=== PATIENT | male | born 1970 | race Two or more races ===

== ENCOUNTER 2016-08-09 20:10 | Emergency (ER) | payer MEDICAID, MEDICARE ==
[~2016-08-09] VITALS: Ht 177.8 cm; Wt 136.1 kg
[2016-08-09] MEDS ORDERED: DEXTROSE 50%-WATER 50 ML DISP.SYRIN ONE (20:26)
[2016-08-09] MEDS ORDERED: DEXTROSE 50%-WATER 50 ML DISP.SYRIN IVP ONE ×2 (20:30)
[2016-08-09 20:43] LABS: CALCIUM, SERUM 7.9 mg/dL (8.5-10.1); POTASSIUM 3.9 mmol/L (3.5-5.1)
[2016-08-09 20:48] LABS: ALBUMIN 3.9 g/dL (3.4-5.0); BILIRUBIN,DIRECT 0.3 mg/dL (0.0-0.2); BILIRUBIN,TOTAL 0.8 mg/dL (0.2-1.0); INDIRECT BILIRUBIN 0.5 mg/dL (0.0-1.1); TOTAL PROTEIN, SERUM 7.8 g/dL (6.4-8.2)
[2016-08-09 20:50] LABS: TROPONIN I 0.122 ng/mL (0.00-0.056)
[2016-08-09 20:53] LABS: CREATININE 9.3 mg/dL (0.6-1.3)
[2016-08-09 20:58] LABS: INR 1.13 (0.87-1.13); PROTHROMBIN TIME 12.2 SECS (9.5-12.7)
[2016-08-09 21:14] LABS: BASOPHILS % (AUTO) 0.6 % (0.0-2.0); DIFF TOTAL % 100 %; EOSINOPHILS # (AUTO) 0.2 /CMM (0.0-0.7); EOSINOPHILS % (AUTO) 3.3 % (0.0-6.0); HEMATOCRIT 25 % (39-51); HEMOGLOBIN 8.4 g/dL (13.5-17.5); LYMPHOCYTES # (AUTO) 0.7 /CMM (0.8-4.8); LYMPHOCYTES % (AUTO) 13.8 % (20.0-44.0); MEAN CORPUSCULAR HEMOGLOBIN 29 PG (26.0-33.0); MEAN CORPUSCULAR HGB CONC 33 g/dl (31.0-36.0); MEAN CORPUSCULAR VOLUME 87 fL (80-96); MONOCYTES # (AUTO) 0.6 /CMM (0.1-1.30); MONOCYTES % (AUTO) 11.5 % (2.0-12.0); NEUTROPHILS # (AUTO) 3.7 /CMM (1.8-8.9); NEUTROPHILS % (AUTO) 70.8 % (43.0-81.0); PLATELET COUNT (AUTO) 201 /CMM (150-450); RED BLOOD CELL COUNT(AUTO) 2.94 MIL/uL (4.5-6.0); WHITE BLOOD COUNT (AUTO) 5.2 K/uL (4.3-11.0)
[2016-08-09 21:54] VITALS: BP 152/86
== END 2016-08-09 21:55 | disposition home or self-care (01) ==
LOC: ER 20:16
DX: I12.0 Hypertensive chronic kidney disease with stage 5 chronic kidney disease or end stage renal disease (principal); N18.6 End stage renal disease; Z99.2 Dependence on renal dialysis
CPT/HCPCS: 36415; 71010-TC; 80048-TC; 80076-TC; 82962-TC; 84484-TC; 85025-TC; 85730-TC; A4606; Z7610

== ENCOUNTER 2021-01-26 09:48 | Outpatient (CLI) | payer MEDICARE, OTHER | END 2021-01-26 23:59 | disposition home or self-care (01) | LOC: US 09:48 | PROVIDERS: ATTEND Internal Medicine Nephrology | DX: R18.8 Other ascites (principal) | CPT/HCPCS: 76942-TC ==

== ENCOUNTER 2021-02-08 11:39 | Outpatient (CLI) | payer MEDICARE, OTHER | END 2021-02-08 23:59 | disposition home or self-care (01) | LOC: US 11:39 | DX: R18.8 Other ascites (principal) | CPT/HCPCS: 76942-TC ==

== ENCOUNTER 2021-02-15 09:16 | Outpatient (CLI) | payer MEDICARE, OTHER | END 2021-02-15 23:59 | disposition home or self-care (01) | LOC: US 09:16 | PROVIDERS: ATTEND Family Medicine | DX: K74.60 Unspecified cirrhosis of liver (principal); R18.8 Other ascites | CPT/HCPCS: 76942-TC ==

== ENCOUNTER 2021-02-19 08:25 | Emergency (ER) | payer MEDICARE, OTHER ==
[~2021-02-19] VITALS: Ht 177.8 cm; Wt 121.6 kg
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
--- NOTE | 2021-02-19 08:35 | NUR ---
AT BEDSIDE FOR EVAL.
--- NOTE | 2021-02-19 08:45 | NUR ---
IV LINE ESTABLISHED BLOOD DRAWN AND SENT TO LAB.
[2021-02-19] MEDS ORDERED: CARV25TA2 PO (08:48)
[2021-02-19] MEDS ORDERED: LOSA50TA39 PO (08:48)
[2021-02-19] MEDS ORDERED: MINO10TA PO (08:48)
[2021-02-19] MEDS ORDERED: ERGO500093 PO (08:56)
[2021-02-19 08:57] LABS: BASOPHILS # (AUTO) 0.1 K/uL (0.0-0.2); BASOPHILS % (AUTO) 1.5 % (0.0-2.0); EOSINOPHILS % (AUTO) 4.9 % (0.0-6.0); HEMATOCRIT 35 % (39-51); HEMOGLOBIN 11.1 g/dL (13.5-17.5); LYMPHOCYTES # (AUTO) 0.7 K/uL (0.8-4.8); LYMPHOCYTES % (AUTO) 10.9 % (20.0-44.0); MEAN CORPUSCULAR HGB CONC 32 g/dl (31.0-36.0); MEAN CORPUSCULAR VOLUME 85 fL (80-96); MONOCYTES # (AUTO) 0.6 K/uL (0.1-1.30); MONOCYTES % (AUTO) 9.2 % (2.0-12.0); NEUTROPHILS # (AUTO) 4.9 K/uL (1.8-8.9); NEUTROPHILS % (AUTO) 73.5 % (43.0-81.0); PLATELET COUNT (AUTO) 242 K/uL (150-450); RED BLOOD CELL COUNT(AUTO) 4.13 MIL/uL (4.5-6.0); WHITE BLOOD COUNT (AUTO) 6.6 K/uL (4.3-11.0)
--- NOTE | 2021-02-19 09:18 | NUR ---
BRAND STRATEGIST AT BEDSIDE FOR XRAY.
[2021-02-19 09:30] LABS: ALBUMIN 2.5 g/dL (3.4-5.0); BILIRUBIN,DIRECT 0.2 mg/dL (0.0-0.2); BILIRUBIN,TOTAL 0.5 mg/dL (0.2-1.0); CALCIUM, SERUM 7.3 mg/dL (8.5-10.1); POTASSIUM 5.9 mmol/L (3.5-5.1); TOTAL PROTEIN, SERUM 6.7 g/dL (6.4-8.2)
[2021-02-19 09:49] LABS: CREATININE 15.2 mg/dL (0.6-1.3)
[2021-02-19] MEDS ORDERED: IOHEXOL-300 100 ML VIAL IV ONE (09:59)
[2021-02-19] MEDS ORDERED: IV NS 0.9% 250 ML IV ONE (09:59)
[2021-02-19] MEDS ORDERED: CT SWABBABLE VALVE TRANS SET 1 EA INFUS.SET MC ONE (09:59)
--- NOTE | 2021-02-19 10:03 | NUR ---
PT IS WHEELED TO CT SCAN VIA WHEELCHAIR.
--- NOTE | 2021-02-19 10:51 | NUR ---
IV removed. Catheter intact and site benign. Pressure and 4x4 applied to site. No bleeding noted. Patient discharged to home in stable condition. Written and verbal after care instructions given. Patient verbalizes understanding of instruction.
[2021-02-19 10:52] VITALS: BP 125/71
== END 2021-02-19 10:52 | disposition home or self-care (01) ==
LOC: ER 08:28
DX: I12.0 Hypertensive chronic kidney disease with stage 5 chronic kidney disease or end stage renal disease (principal); N18.6 End stage renal disease; R18.8 Other ascites; Z79.899 Other long term (current) drug therapy
CPT/HCPCS: 36415; 71045; 74177; 80048; 80076; 82140; 83690; 85025; 85730; 99285; J7050; Q9967

== ENCOUNTER 2021-02-22 10:09 | Outpatient (CLI) | payer MEDICARE, OTHER ==
[~2021-02-22 10:09] MED LIST: CARV25TA2 PO; ERGO500093 PO; LOSA50TA39 PO; MINO10TA PO
== END 2021-02-22 23:59 | disposition home or self-care (01) ==
LOC: US 10:09
PROVIDERS: ATTEND Family Medicine
DX: K74.60 Unspecified cirrhosis of liver (principal); R18.8 Other ascites
CPT/HCPCS: 76942-TC

== ENCOUNTER → 2021-03-01 | Outpatient (CLI) | payer MEDICARE, OTHER | END | disposition home or self-care (01) | LOC: US 10:04 | DX: R18.8 Other ascites (principal); K74.60 Unspecified cirrhosis of liver | CPT/HCPCS: 76942-TC ==

== ENCOUNTER 2021-03-09 09:16 | Outpatient (CLI) | payer MEDICARE, OTHER | END 2021-03-09 23:59 | disposition home or self-care (01) | LOC: US 09:16 | PROVIDERS: ATTEND Family Medicine | DX: R18.8 Other ascites (principal); K74.60 Unspecified cirrhosis of liver | CPT/HCPCS: 76942-TC ==

== ENCOUNTER 2021-03-15 08:49 | Outpatient (CLI) | payer MEDICARE, OTHER | END 2021-03-15 23:59 | disposition home or self-care (01) | LOC: US 08:49 | DX: R18.8 Other ascites (principal); K74.60 Unspecified cirrhosis of liver | CPT/HCPCS: 76942-TC ==

== ENCOUNTER 2021-03-23 09:39 | Outpatient (CLI) | payer MEDICARE, OTHER | END 2021-03-23 23:59 | disposition home or self-care (01) | LOC: US 09:39 | PROVIDERS: ATTEND Family Medicine | DX: R18.8 Other ascites (principal); K74.60 Unspecified cirrhosis of liver | CPT/HCPCS: 76942-TC ==

== ENCOUNTER 2021-03-29 10:16 | Outpatient (CLI) | payer MEDICARE, OTHER | END 2021-03-29 23:59 | disposition home or self-care (01) | LOC: US 10:16 | PROVIDERS: ATTEND Family Medicine | DX: R18.8 Other ascites (principal); K74.60 Unspecified cirrhosis of liver | CPT/HCPCS: 76942-TC ==

== ENCOUNTER 2021-04-05 09:08 | Outpatient (CLI) | payer MEDICARE, OTHER | END 2021-04-05 23:59 | disposition home or self-care (01) | LOC: US 09:08 | PROVIDERS: ATTEND Family Medicine | DX: R18.8 Other ascites (principal); K74.60 Unspecified cirrhosis of liver | CPT/HCPCS: 76942-TC ==

== ENCOUNTER 2021-04-13 10:08 | Outpatient (CLI) | payer MEDICARE, OTHER | END 2021-04-13 23:59 | disposition home or self-care (01) | LOC: US 10:08 | PROVIDERS: ATTEND Family Medicine | DX: R18.8 Other ascites (principal); K74.60 Unspecified cirrhosis of liver | CPT/HCPCS: 76942-TC ==

== ENCOUNTER 2021-04-23 10:16 | Outpatient (CLI) | payer MEDICARE, OTHER ==
[2021-04-23 11:27] LABS: BASOPHILS # (AUTO) 0.1 K/uL (0.0-0.2); BASOPHILS % (AUTO) 1.1 % (0.0-2.0); EOSINOPHILS % (AUTO) 3.3 % (0.0-6.0); HEMATOCRIT 31 % (39-51); HEMOGLOBIN 10.2 g/dL (13.5-17.5); LYMPHOCYTES # (AUTO) 0.7 K/uL (0.8-4.8); LYMPHOCYTES % (AUTO) 9.1 % (20.0-44.0); MEAN CORPUSCULAR HGB CONC 33 g/dl (31.0-36.0); MEAN CORPUSCULAR VOLUME 91 fL (80-96); MONOCYTES # (AUTO) 0.7 K/uL (0.1-1.30); MONOCYTES % (AUTO) 9.6 % (2.0-12.0); NEUTROPHILS # (AUTO) 5.6 K/uL (1.8-8.9); NEUTROPHILS % (AUTO) 76.9 % (43.0-81.0); PLATELET COUNT (AUTO) 223 K/uL (150-450); RED BLOOD CELL COUNT(AUTO) 3.43 MIL/uL (4.5-6.0); WHITE BLOOD COUNT (AUTO) 7.2 K/uL (4.3-11.0)
[2021-04-23 12:01] LABS: ALBUMIN 2.7 g/dL (3.4-5.0); BILIRUBIN,TOTAL 0.4 mg/dL (0.2-1.0); CALCIUM, SERUM 7.6 mg/dL (8.5-10.1); TOTAL PROTEIN, SERUM 7.2 g/dL (6.4-8.2)
[2021-04-23 12:57] LABS: CREATININE 14.3 mg/dL (0.6-1.3)
[2021-04-23 14:34] LABS: T4 (THYROXINE) 5.7 ug/dL (4.7-13.3); THYROID STIMULATING HORMONE 2.802 uIU/mL (0.358-3.74)
== END 2021-04-23 23:59 | disposition home or self-care (01) ==
LOC: US 10:16
PROVIDERS: ATTEND Family Medicine
DX: R18.8 Other ascites (principal); K74.60 Unspecified cirrhosis of liver
CPT/HCPCS: 36415; 76942-TC; 80053-TC; 80061-TC; 82306; 82607-TC; 83540-TC; 84436-TC; 84443-TC; 85025-TC

== ENCOUNTER 2021-05-04 10:08 | Outpatient (CLI) | payer MEDICARE, OTHER ==
[2021-05-04 10:50] LABS: BASOPHILS # (AUTO) 0.1 K/uL (0.0-0.2); BASOPHILS % (AUTO) 0.9 % (0.0-2.0); EOSINOPHILS % (AUTO) 1.6 % (0.0-6.0); HEMATOCRIT 30 % (39-51); HEMOGLOBIN 9.7 g/dL (13.5-17.5); LYMPHOCYTES # (AUTO) 0.6 K/uL (0.8-4.8); LYMPHOCYTES % (AUTO) 5.6 % (20.0-44.0); MEAN CORPUSCULAR HGB CONC 32 g/dl (31.0-36.0); MEAN CORPUSCULAR VOLUME 92 fL (80-96); MONOCYTES # (AUTO) 0.7 K/uL (0.1-1.30); MONOCYTES % (AUTO) 6.1 % (2.0-12.0); NEUTROPHILS # (AUTO) 9.9 K/uL (1.8-8.9); NEUTROPHILS % (AUTO) 85.8 % (43.0-81.0); PLATELET COUNT (AUTO) 260 K/uL (150-450); RED BLOOD CELL COUNT(AUTO) 3.29 MIL/uL (4.5-6.0); WHITE BLOOD COUNT (AUTO) 11.5 K/uL (4.3-11.0)
[2021-05-04 11:07] LABS: ALBUMIN 2.6 g/dL (3.4-5.0); BILIRUBIN,TOTAL 0.3 mg/dL (0.2-1.0); POTASSIUM 4.9 mmol/L (3.5-5.1)
[2021-05-04 11:12] LABS: CREATININE 13.3 mg/dL (0.6-1.3)
== END 2021-05-04 23:59 | disposition home or self-care (01) ==
LOC: US 10:08
PROVIDERS: ATTEND Family Medicine
DX: R18.8 Other ascites (principal); K74.60 Unspecified cirrhosis of liver
CPT/HCPCS: 36415; 76942-TC; 80053-TC; 85025-TC; 85730-TC

== ENCOUNTER 2021-05-10 10:08 | Outpatient (CLI) | payer MEDICARE, OTHER | END 2021-05-10 23:59 | disposition home or self-care (01) | LOC: US 10:08 | PROVIDERS: ATTEND Family Medicine | DX: R18.8 Other ascites (principal); K74.60 Unspecified cirrhosis of liver | CPT/HCPCS: 76942-TC ==

== ENCOUNTER 2021-05-16 10:55 | Outpatient (CLI) | payer MEDICARE, OTHER | END 2021-05-16 23:59 | disposition home or self-care (01) | LOC: US 10:55 | DX: R18.8 Other ascites (principal); K74.60 Unspecified cirrhosis of liver | CPT/HCPCS: 76942-TC ==

== ENCOUNTER 2021-05-24 11:15 | Outpatient (CLI) | payer MEDICARE, OTHER | END 2021-05-24 23:59 | disposition home or self-care (01) | LOC: US 11:15 | PROVIDERS: ATTEND Family Medicine | DX: R18.8 Other ascites (principal); K74.60 Unspecified cirrhosis of liver | CPT/HCPCS: 76942-TC ==

== ENCOUNTER 2021-05-30 10:04 | Outpatient (CLI) | payer MEDICARE, OTHER | END 2021-05-30 23:59 | disposition home or self-care (01) | LOC: US 10:04 | PROVIDERS: ATTEND Family Medicine | DX: R18.8 Other ascites (principal); K74.60 Unspecified cirrhosis of liver | CPT/HCPCS: 76942-TC ==

== ENCOUNTER 2021-06-01 10:07 | Outpatient (CLI) | payer MEDICARE, OTHER | END 2021-06-01 23:59 | disposition home or self-care (01) | LOC: US 10:07 | PROVIDERS: ATTEND Family Medicine | DX: R18.8 Other ascites (principal); K74.60 Unspecified cirrhosis of liver | CPT/HCPCS: 76942-TC ==

== ENCOUNTER 2021-06-05 09:57 | Outpatient (CLI) | payer MEDICARE, OTHER | END 2021-06-05 23:59 | disposition home or self-care (01) | LOC: US 09:57 | PROVIDERS: ATTEND Family Medicine | DX: R18.8 Other ascites (principal) | CPT/HCPCS: 76942-TC ==

== ENCOUNTER 2021-06-11 09:06 | Outpatient (CLI) | payer MEDICARE, OTHER | END 2021-06-11 23:59 | disposition home or self-care (01) | LOC: US 09:06 | PROVIDERS: ATTEND Family Medicine | DX: R18.8 Other ascites (principal) | CPT/HCPCS: 76942-TC ==

== ENCOUNTER 2021-06-15 09:04 | Outpatient (CLI) | payer MEDICARE, OTHER | END 2021-06-15 23:59 | disposition home or self-care (01) | LOC: US 09:04 | PROVIDERS: ATTEND Family Medicine | DX: R18.8 Other ascites (principal); K74.60 Unspecified cirrhosis of liver | CPT/HCPCS: 76942-TC ==

== ENCOUNTER 2021-06-18 08:53 | Outpatient (CLI) | payer MEDICARE, OTHER | END 2021-06-18 23:59 | disposition home or self-care (01) | LOC: US 08:53 | PROVIDERS: ATTEND Family Medicine | DX: R18.8 Other ascites (principal) | CPT/HCPCS: 76942-TC ==

== ENCOUNTER 2021-06-20 09:03 | Outpatient (CLI) | payer MEDICARE, OTHER | END 2021-06-20 23:59 | disposition home or self-care (01) | LOC: US 09:03 | PROVIDERS: ATTEND Family Medicine | DX: R18.8 Other ascites (principal) | CPT/HCPCS: 76942-TC ==

== ENCOUNTER 2021-06-25 08:30 | Outpatient (CLI) | payer MEDICARE, OTHER ==
[2021-06-25 10:04] LABS: BASOPHILS # (AUTO) 0.1 K/uL (0.0-0.2); EOSINOPHILS % (AUTO) 3.5 % (0.0-6.0); HEMATOCRIT 27 % (39-51); HEMOGLOBIN 8.6 g/dL (13.5-17.5); LYMPHOCYTES # (AUTO) 0.9 K/uL (0.8-4.8); LYMPHOCYTES % (AUTO) 11.1 % (20.0-44.0); MEAN CORPUSCULAR HGB CONC 32 g/dl (31.0-36.0); MEAN CORPUSCULAR VOLUME 95 fL (80-96); MONOCYTES # (AUTO) 0.8 K/uL (0.1-1.30); MONOCYTES % (AUTO) 10.3 % (2.0-12.0); NEUTROPHILS # (AUTO) 5.9 K/uL (1.8-8.9); NEUTROPHILS % (AUTO) 74.1 % (43.0-81.0); PLATELET COUNT (AUTO) 277 K/uL (150-450); RED BLOOD CELL COUNT(AUTO) 2.82 MIL/uL (4.5-6.0); WHITE BLOOD COUNT (AUTO) 7.9 K/uL (4.3-11.0)
[2021-06-25 10:14] LABS: ALBUMIN 2.4 g/dL (3.4-5.0); BILIRUBIN,TOTAL 0.3 mg/dL (0.2-1.0); CALCIUM, SERUM 7.3 mg/dL (8.5-10.1); POTASSIUM 5.4 mmol/L (3.5-5.1); TOTAL PROTEIN, SERUM 6.7 g/dL (6.4-8.2)
[2021-06-25 10:45] LABS: CREATININE 12.4 mg/dL (0.6-1.3)
== END 2021-06-25 23:59 | disposition home or self-care (01) ==
LOC: US 08:30
PROVIDERS: ATTEND Family Medicine
DX: R18.8 Other ascites (principal); K74.60 Unspecified cirrhosis of liver; I12.0 Hypertensive chronic kidney disease with stage 5 chronic kidney disease or end stage renal disease; N18.6 End stage renal disease
CPT/HCPCS: 36415; 76942-TC; 80053-TC; 85025-TC; 85610-TC

== ENCOUNTER 2021-06-29 09:19 | Outpatient (CLI) | payer MEDICARE, OTHER | END 2021-06-29 23:59 | disposition home or self-care (01) | LOC: US 09:19 | PROVIDERS: ATTEND Physician Assistant | DX: R18.8 Other ascites (principal) | CPT/HCPCS: 76942-TC ==

== ENCOUNTER 2021-07-02 09:34 | Outpatient (CLI) | payer MEDICARE, OTHER | END 2021-07-02 23:59 | disposition home or self-care (01) | LOC: US 09:34 | PROVIDERS: ATTEND Family Medicine | DX: R18.8 Other ascites (principal) | CPT/HCPCS: 76942-TC ==

== ENCOUNTER 2021-07-06 09:25 | Outpatient (CLI) | payer MEDICARE, OTHER | END 2021-07-06 23:59 | disposition home or self-care (01) | LOC: US 09:25 | PROVIDERS: ATTEND Family Medicine | DX: R18.8 Other ascites (principal); K74.60 Unspecified cirrhosis of liver | CPT/HCPCS: 76942-TC ==

== ENCOUNTER → 2021-07-09 | Outpatient (CLI) | payer MEDICARE, OTHER | END | disposition home or self-care (01) | LOC: US 09:13 | PROVIDERS: ATTEND Family Medicine | DX: R18.8 Other ascites (principal); K74.60 Unspecified cirrhosis of liver; I12.0 Hypertensive chronic kidney disease with stage 5 chronic kidney disease or end stage renal disease; N18.6 End stage renal disease | CPT/HCPCS: 76942-TC ==

== ENCOUNTER 2021-07-13 09:03 | Outpatient (CLI) | payer MEDICARE, OTHER | END 2021-07-13 23:59 | disposition home or self-care (01) | LOC: US 09:03 | PROVIDERS: ATTEND Family Medicine | DX: R18.8 Other ascites (principal) | CPT/HCPCS: 76942-TC ==

== ENCOUNTER 2021-07-16 09:44 | Outpatient (CLI) | payer MEDICARE, OTHER | END 2021-07-16 23:59 | disposition home or self-care (01) | LOC: US 09:44 | PROVIDERS: ATTEND Family Medicine | DX: R18.8 Other ascites (principal) | CPT/HCPCS: 76942-TC ==

== ENCOUNTER 2021-07-19 10:55 | Outpatient (CLI) | payer MEDICARE, OTHER | END 2021-07-19 23:59 | disposition home or self-care (01) | LOC: US 10:55 | PROVIDERS: ATTEND Family Medicine | DX: R18.8 Other ascites (principal) | CPT/HCPCS: 76942-TC ==

== ENCOUNTER 2021-07-23 09:13 | Outpatient (CLI) | payer MEDICARE, OTHER | END 2021-07-23 23:59 | disposition home or self-care (01) | LOC: US 09:13 | PROVIDERS: ATTEND Family Medicine | DX: R18.8 Other ascites (principal); K74.60 Unspecified cirrhosis of liver; I12.0 Hypertensive chronic kidney disease with stage 5 chronic kidney disease or end stage renal disease; N18.6 End stage renal disease | CPT/HCPCS: 76942-TC ==

== ENCOUNTER 2021-07-26 10:10 | Outpatient (CLI) | payer MEDICARE, OTHER | END 2021-07-26 23:59 | disposition home or self-care (01) | LOC: US 10:10 | PROVIDERS: ATTEND Family Medicine | DX: R18.8 Other ascites (principal) | CPT/HCPCS: 76942-TC ==

== ENCOUNTER 2021-07-30 08:58 | Outpatient (CLI) | payer MEDICARE, OTHER | END 2021-07-30 23:59 | disposition home or self-care (01) | LOC: US 08:58 | PROVIDERS: ATTEND Family Medicine | DX: R18.8 Other ascites (principal) | CPT/HCPCS: 76942-TC ==

== ENCOUNTER 2021-08-02 11:00 | Outpatient (CLI) | payer MEDICARE, OTHER | END 2021-08-02 23:59 | disposition home or self-care (01) | LOC: US 11:00 | PROVIDERS: ATTEND Family Medicine | DX: R18.8 Other ascites (principal) | CPT/HCPCS: 76942-TC ==

== ENCOUNTER 2021-08-06 09:45 | Outpatient (CLI) | payer MEDICARE, OTHER | END 2021-08-06 23:59 | disposition home or self-care (01) | LOC: US 09:45 | PROVIDERS: ATTEND Family Medicine | DX: R18.8 Other ascites (principal) | CPT/HCPCS: 76942-TC ==

== ENCOUNTER 2021-08-10 09:17 | Outpatient (CLI) | payer MEDICARE, OTHER | END 2021-08-10 23:59 | disposition home or self-care (01) | LOC: US 09:17 | PROVIDERS: ATTEND Family Medicine | DX: R18.8 Other ascites (principal) | CPT/HCPCS: 76942-TC ==

== ENCOUNTER 2021-08-15 09:31 | Outpatient (CLI) | payer MEDICARE, OTHER | END 2021-08-15 23:59 | disposition home or self-care (01) | LOC: US 09:31 | PROVIDERS: ATTEND Family Medicine | DX: K74.60 Unspecified cirrhosis of liver (principal); R18.8 Other ascites | CPT/HCPCS: 76942-TC ==

== ENCOUNTER 2021-08-20 09:05 | Outpatient (CLI) | payer MEDICARE, OTHER | END 2021-08-20 23:59 | disposition home or self-care (01) | LOC: US 09:05 | PROVIDERS: ATTEND Family Medicine | DX: R18.8 Other ascites (principal) | CPT/HCPCS: 76942-TC ==

== ENCOUNTER 2021-08-27 10:42 | Outpatient (CLI) | payer MEDICARE, OTHER | END 2021-08-27 23:59 | disposition home or self-care (01) | LOC: US 10:42 | PROVIDERS: ATTEND Family Medicine | DX: R18.8 Other ascites (principal) | CPT/HCPCS: 76942-TC ==

== ENCOUNTER 2021-08-31 11:35 | Outpatient (CLI) | payer MEDICARE, OTHER | END 2021-08-31 23:59 | disposition home or self-care (01) | LOC: US 11:35 | PROVIDERS: ATTEND Family Medicine | DX: R18.8 Other ascites (principal) | CPT/HCPCS: 76942-TC ==

== ENCOUNTER 2021-09-03 10:20 | Outpatient (CLI) | payer MEDICARE, OTHER | END 2021-09-03 23:59 | disposition home or self-care (01) | LOC: US 10:20 | PROVIDERS: ATTEND Family Medicine | DX: R18.8 Other ascites (principal) | CPT/HCPCS: 76942-TC ==

== ENCOUNTER 2021-09-17 09:22 | Outpatient (CLI) | payer MEDICARE, OTHER ==
[2021-09-17 10:25] LABS: BASOPHILS # (AUTO) 0.1 K/uL (0.0-0.2); BASOPHILS % (AUTO) 0.6 % (0.0-2.0); EOSINOPHILS % (AUTO) 1.4 % (0.0-6.0); HEMATOCRIT 26 % (39-51); HEMOGLOBIN 8.1 g/dL (13.5-17.5); LYMPHOCYTES # (AUTO) 0.8 K/uL (0.8-4.8); LYMPHOCYTES % (AUTO) 6.8 % (20.0-44.0); MEAN CORPUSCULAR HGB CONC 31 g/dl (31.0-36.0); MEAN CORPUSCULAR VOLUME 83 fL (80-96); MONOCYTES % (AUTO) 8.2 % (2.0-12.0); NEUTROPHILS # (AUTO) 10.4 K/uL (1.8-8.9); PLATELET COUNT (AUTO) 235 K/uL (150-450); RED BLOOD CELL COUNT(AUTO) 3.16 MIL/uL (4.5-6.0); WHITE BLOOD COUNT (AUTO) 12.6 K/uL (4.3-11.0)
[2021-09-17 10:57] LABS: ALBUMIN 2.3 g/dL (3.4-5.0); BILIRUBIN,TOTAL 0.4 mg/dL (0.2-1.0); CALCIUM, SERUM 7.2 mg/dL (8.5-10.1); POTASSIUM 5.2 mmol/L (3.5-5.1)
[2021-09-17 11:01] LABS: CREATININE 10.9 mg/dL (0.6-1.3)
== END 2021-09-17 23:59 | disposition home or self-care (01) ==
LOC: US 09:22
PROVIDERS: ATTEND Family Medicine
DX: R18.8 Other ascites (principal); K74.60 Unspecified cirrhosis of liver
CPT/HCPCS: 36415; 76942-TC; 80053-TC; 85025-TC; 85610-TC

== ENCOUNTER 2021-09-21 10:23 | Outpatient (CLI) | payer MEDICARE, OTHER | END 2021-09-21 23:59 | disposition home or self-care (01) | LOC: US 10:23 | PROVIDERS: ATTEND Family Medicine | DX: R18.8 Other ascites (principal) | CPT/HCPCS: 76942-TC ==

== ENCOUNTER 2021-10-02 10:39 | Outpatient (CLI) | payer MEDICARE, OTHER ==
[2021-10-02 12:11] LABS: BASOPHILS # (AUTO) 0.1 K/uL (0.0-0.2); BASOPHILS % (AUTO) 1.1 % (0.0-2.0); EOSINOPHILS % (AUTO) 1.4 % (0.0-6.0); HEMATOCRIT 24 % (39-51); HEMOGLOBIN 7.4 g/dL (13.5-17.5); LYMPHOCYTES # (AUTO) 0.6 K/uL (0.8-4.8); MEAN CORPUSCULAR HGB CONC 31 g/dl (31.0-36.0); MEAN CORPUSCULAR VOLUME 81 fL (80-96); MONOCYTES # (AUTO) 0.8 K/uL (0.1-1.30); MONOCYTES % (AUTO) 7.2 % (2.0-12.0); NEUTROPHILS % (AUTO) 84.3 % (43.0-81.0); PLATELET COUNT (AUTO) 310 K/uL (150-450); RED BLOOD CELL COUNT(AUTO) 2.91 MIL/uL (4.5-6.0); WHITE BLOOD COUNT (AUTO) 10.6 K/uL (4.3-11.0)
[2021-10-02 12:29] LABS: ALBUMIN 2.1 g/dL (3.4-5.0); BILIRUBIN,TOTAL 0.3 mg/dL (0.2-1.0); CALCIUM, SERUM 7.4 mg/dL (8.5-10.1); POTASSIUM 5.7 mmol/L (3.5-5.1); TOTAL PROTEIN, SERUM 6.6 g/dL (6.4-8.2)
[2021-10-02 12:34] LABS: CREATININE 12.4 mg/dL (0.6-1.3)
== END 2021-10-02 23:59 | disposition home or self-care (01) ==
LOC: US 10:39
PROVIDERS: ATTEND Family Medicine
DX: R18.8 Other ascites (principal)
CPT/HCPCS: 36415; 76942-TC; 80053-TC; 85025-TC; 85610-TC